=== PATIENT | female | born 1945 | race Caucasian/White ===

== ENCOUNTER 2017-01-02 09:18 | Outpatient (CLI) | payer MEDICARE, OTHER | END 2017-01-02 09:19 | disposition home or self-care (01) | LOC: MADLABBHPM 09:18 | PROVIDERS: ATTEND Family Medicine | DX: R30.0 Dysuria (principal) | CPT/HCPCS: 36415; 87077; 87086; 87186 ==

== ENCOUNTER 2017-01-25 09:34 | Outpatient (CLI) | payer OTHER, MEDICARE ==
--- NOTE | 2017-01-25 14:50 | RAD ---
FIVE VIEWS LUMBAR SPINE: HISTORY: Lumbago for 6 months. FINDINGS: AP, lateral, both oblique, and coned down views of the lumbar spine are obtained. Images demonstrate vacuum disk changes seen at the L5-S1 level. There is mild anterolisthesis of L4 on L5. Disk space height loss is also seen at the L1-2, L2-3, and L3-4 levels. Atherosclerotic calcification of the aorta is seen. No evidence of blessing- or retrolisthesis seen. Bilateral hip degenerative changes are also seen. IMPRESSION: Multilevel degenerative disk changes with vacuum disk changes seen at L5-S1. No acute fractures or lesions seen. POS: [id number]
== END 2017-01-25 09:35 ==
LOC: MADLABBHPM 09:34
PROVIDERS: ATTEND Family Medicine
DX: N39.0 Urinary tract infection, site not specified (principal)
CPT/HCPCS: 36415; 72110; 87086